=== PATIENT | female | born 1945 | race Caucasian/White ===

== ENCOUNTER 2016-10-25 11:32 | Emergency (ER) | payer MEDICARE, OTHER ==
[2016-10-25] MEDS ORDERED: PROMETHAZINE HCL 25 MG in DEXTROSE 5 % IN WATER 50 ML IV ONE ×2 (12:04)
[2016-10-25] MEDS ORDERED: NORMAL SALINE 1,000 ML IV ONE (12:04)
[2016-10-25] MEDS ORDERED: DIATRIZOATE MEGLU/DIATRIZO SOD 30 ML BTL PO ONE (12:10)
--- OUTSIDE RECORDS SUMMARY | 2016-10-25 12:16 | XMS REPORT | Continuity of Care Document ---
:1945 Author Organization [facility] ([facility]) Address [place] [address] Phone [phone] Care Team Providers Name Role Phone Pradeep Avendaño Primary Care Provider [phone] Source Comments This disclosure is being made pursuant to the Care Everywhere program, applicable federal and state laws, and may not contain all informaitonavailable regarding this patient.[facility] ([facility]) Active Allergies and Adverse Reactions No Active Allergies Current Medications Not on file Active Problems Problem Noted Date Acute vascular insufficiency of intestine 07/28/2006 Abdominal pain, unspecified site 06/02/2006 Abdominal pain, epigastric 06/02/2006 Social History Tobacco Use Types Packs/Day Years Used Date Never Assessed Last Filed Vital Signs Vital Sign Reading Time Taken Blood Pressure 128/81 04/24/2008 11:25 AM CDT Pulse 62 04/24/2008 11:25 AM CDT Temperature 36.2 C (97.16 F) 04/24/2008 11:25 AM CDT Respiratory Rate 16 04/24/2008 11:25 AM CDT Height 1.626 m (5' 4.01") 02/22/2008 10:47 AM CDT Weight 75.896 kg (167 lb 5.1 oz) 02/22/2008 10:47 AM CDT Body Mass Index 28.71 02/22/2008 10:47 AM CDT Oxygen Saturation - - Plan of Care Date Type Specialty Providers Description 12/08/2016 Wait List Neurology 12/08/2016 Appointment Neurology Angi Marcelino MD Chief Comp: Patient [address] [place] [address] Visit [phone] (Fax) 12/24/2016 Wait List Med GI/Hepatology 12/24/2016 Appointment Med GI/Hepatology Paul Polk MD Chief Comp: Patient [address] [place] [address] Visit [phone] (Fax) Health Maintenance Due Date Last Done Comments HCV Screening 1945 Hepatitis B Vaccine (1 of 3 - Primary Series) 1945 Tdap Vaccine 11/16/1955 Lipid Disorder Screening 1962 Td Vaccine 1962 Mammogram 1984 Zoster Vaccine 2004 Osteoporosis Screening (DXA Bone Density) 2009 Pneumococcal Vaccine (1 of 2 - PCV13) 2009 Influenza Vaccine: Seasonal (#1) 03/16/2016 Colonoscopy 04/24/2018 04/24/2008 Results from Last 3 Months Not on file
--- NOTE | 2016-10-25 12:17 | ERNOTE ---
Medical Problem HPI - Narrative Date of Service: 10/25/16 - General Chief Complaint: General Assessment Time Seen by Provider: 10/25/16 11:53 Source: patient, family Exam Limitations: no limitations - Immun/Allergies/Home Medications Immunizations: IMMUNIZATION HX Immunizations Up to Date Yes History of Influenza Vaccine Yes Hx Pneumococcal Vaccination Yes Allergies/Adverse Reactions: Allergies No Known Allergies Allergy (Verified 10/25/16 11:50) Home Medications: HOME MEDICATIONS Acetaminophen [Tylenol] 325 - 650 mg PO Q4H PRN 07/20/12 [Last Taken Unknown] Cholecalciferol (Vitamin D3) [Vitamin D] 2,000 unit PO DAILY 07/20/12 [Last Taken Unknown] Calcium Carbonate [[id number]] 500 mg PO DAILY 01/15/15 [Last Taken Unknown] Levothyroxine Sodium [Synthroid] 88 mcg PO DAILY 01/15/15 [Last Taken Unknown] Multivitamins [Multivitamin Rigoberto] 1 cap PO DAILY 01/15/15 [Last Taken Unknown] Aspirin 81 mg PO DAILY 10/25/16 [Last Taken Unknown] Promethazine HCl [Phenergan (Promethazine)] 25 mg PO QID #12 tab 10/25/16 [Last Taken Unknown] - History of Present History Narrative: 6 days ago, began to have some generalized abdominal discomfort. 2 days ago, was seen in the walkin clinic, and told maybe she had diverticulitis, and was started on oral antibiotics. This morning, she developed brown diarrhea, no blood, increased general pressure like abdominal pain, light headedness and mild nausea. No fever. Not around anyone else sick in the last week. Has fructose intolerance, follows diet closely. Timing: getting worse Severity: mild, moderate Modifying Factors - (Improves): Present: other - nothing Modifying Factors - (Worsens): Present: eating, movement Review of Systems - Review of Systems Constitutional: Present: malaise, decreased activity level EYE: Present: no symptoms reported ENT: Present: no symptoms reported Respiratory: Present: no symptoms reported Cardiology: Present: no symptoms reported Gastrointestinal/Abdominal: Present: See HPI Genitourinary: Present: no symptoms reported Musculoskeletal: Present: no symptoms reported Skin: Present: no symptoms reported Neurological: Present: no symptoms reported Endocrine: Present: no symptoms reported Hematologic/Lymphatic: Present: no symptoms reported Psych: Present: no symptoms reported All Other Systems: All systems neg except as marked - Patient's Past Medical History Patient History - Medical: Arthritis, Cataracts, Hypothyroidism, Other - fructose intolerance Patient History - Cardiac/Respiratory: No pertinent hx Patient History - Cancer: No Hx of Cancer Patient History - Surgical Procedures: Appendectomy, Cholecystectomy, Colonoscopy, EGD Patient History - Other: None - Social History Living Situations: home Abuse History: No History of abuse Psych History: No pertinent hx Smoking Status: Never smoker Have you smoked in the past 12 months: No Alcohol Use: none Drug Use: none - Immunizations Immunizations Up to Date: Yes Hx Pneumococcal Vaccination: Yes History of Influenza Vaccine: Yes Physical Exam - Physical Exam General Appearance: Present: wd/wn, alert, no apparent distress Eye Exam: Normal inspection: bilateral, PERRL: bilateral, EOMI: bilateral Ears, Nose, Throat: Present: normal ENT inspection, normal pharynx, other - red nasal mucosa Neck: Present: normal inspection, nontender Respiratory: Present: no respiratory distress, normal breath sounds Cardiovascular/Chest: Present: regular rate, rhythm, no murmur Gastrointestinal/Abdominal: Present: normal bowel sounds, nondistended, soft, no organomegaly, tenderness - diffuse mild Back Exam: Present: normal inspection, no CVA tenderness, no vertebral tenderness Extremity Exam: Present: normal inspection, normal range of motion, no edema Neurological Exam: Present: alert, oriented, normal mood/affect Skin Exam: Present: normal color, warm/dry ED Progress - Results and Orders Patient's Lab Results:: I have reviewed the patient's lab results. - Vital Signs Patient's Vital Signs:: I have reviewed the patient's vital signs. Vital Signs: Vital Signs 10/25/16 11:46 Temperature 36.6 C Pulse Rate 72 Respiratory 14 Rate Blood Pressure 146/89 O2 Sat by Pulse 100 Oximetry - CT/Ultrasound CT/Ultrasound Narrative: I have reviewed the CT scan report. There is no definitive evidence for colitis or for diverticulitis. - Progress/Reassessment Chief Complaint: General Assessment Departure - Departure Clinical Impression: Diarrhea Qualifiers: Diarrhea type: unspecified type Qualified Code(s): R19.7 - Diarrhea, unspecified Disposition: Home self-care Condition: Good Instructions: Diarrhea, Adult, Hktk-bv-Ltex, Clear Liquid Diet, Oqtj-uy-Ougq Additional Instructions: Followup with your doctor in 2-3 days. Stop the antibiotics. Clear liquids only for 72 hours. Rest Referrals: Pradeep Avendaño MD [Primary Care Provider] - Prescriptions: Promethazine HCl [Phenergan (Promethazine)] 25 mg PO QID #12 tab
[2016-10-25 12:37] LABS: Hematocrit 43.6 % (37.0-47.0); Hemoglobin 14.4 gm/dL (12.5-16.0); Mean Cell Volume 92.8 fl (78-100); Mean Corpuscular Hemoglobin 30.6 pg (27-31); Neutrophil # 3.4 K/mm3 (1.3-6.0); Neutrophil % 64.5 % (42-75.0); Platelet Count 146 K/mm3 (150-450); Red Cell Distribution Width 13.7 % (11.5-14.0); White Blood Count 5.2 K/mm3 (4.0-10.5)
[2016-10-25 12:41] LABS: Urine Color Yellow
[2016-10-25 12:42] LABS: Urine Appearance Clear; Urine Bilirubin Negative (NEGATIVE); Urine Ketone Negative (NEGATIVE); Urine Nitrite Negative (NEGATIVE); Urine Protein Negative (NEGATIVE); Urine Specific Gravity 1.005 SP.GR. (1.005-1.010); Urine Urobilinogen Normal (NORMAL)
[2016-10-25 12:43] LABS: Urine Bacteria None Seen; Urine Blood 10 /ul (NEGATIVE); Urine RBC 0-5 /hpf (0-5); Urine WBC None Seen /hpf (0-5)
[2016-10-25] MEDS ORDERED: DIATRIZOATE MEGLU/DIATRIZO SOD 30 ML BTL ONE (12:46)
[2016-10-25 12:53] LABS: Anion Gap 13.3 mmol/L (6.8-13.8); BUN/Creatinine Ratio 10.3 (9.0-21.6); Bilirubin, Total 0.8 mg/dL (0.0-1.1); Carbon Dioxide 29.2 mmol/L (24-32.6); Potassium 3.5 mmol/L (3.4-4.6); Total Protein 7.7 gm/dL (6.2-8.2)
[2016-10-25 12:59] LABS: Ca. Corrected For Albumin 8.9 mg/dL (8.4-10.2); Calcium * 9.2 mg/dL (7.9-10.9)
[2016-10-25 16:22] VITALS: BP 155/95
== END 2016-10-25 16:40 | disposition home or self-care (01) ==
LOC: ER 11:32
DX: R19.7 Diarrhea, unspecified (principal); E03.9 Hypothyroidism, unspecified; M19.90 Unspecified osteoarthritis, unspecified site

== ENCOUNTER 2016-10-27 10:06 | Emergency (ER) | payer MEDICARE, OTHER ==
--- OUTSIDE RECORDS SUMMARY | 2016-10-27 10:24 | XMS REPORT | Continuity of Care Document ---
:1945 Author Organization [facility] ([facility]) [place] [place] [address] Phone [phone] Care Team Providers Name Role Phone Pradeep Avendaño Primary Care Provider [phone] Source Comments This disclosure is being made pursuant to the Care Everywhere program, applicable federal and state laws, and may not contain all informaitonavailable regarding this patient.[facility] ([facility]) Active Allergies and Adverse Reactions No Active [...] Patient [address] [place] [address] Visit [phone] (Fax) 12/24/2016 Wait List Med GI/Hepatology 12/24/2016 Appointment Med GI/Hepatology Paul Polk MD Chief Comp: Patient [address] [place] [address] Visit [phone] (Fax) Health Maintenance Due Date Last Done [...]
[2016-10-27 10:36] LABS: Hematocrit 43.7 % (37.0-47.0); Hemoglobin 14.6 gm/dL (12.5-16.0); Mean Cell Volume 91.6 fl (78-100); Mean Corpuscular Hemoglobin 30.6 pg (27-31); Mean Corpuscular Hgb Conc 33.4 g/dl (32-36); Mean Platelet Volume 10.8 fl (6.0-9.5); Neutrophil # 3.5 K/mm3 (1.3-6.0); Neutrophil % 66.8 % (42-75.0); Platelet Count 156 K/mm3 (150-450); Red Blood Count 4.77 M/mm3 (4.2-5.4); Red Cell Distribution Width 13.5 % (11.5-14.0); White Blood Count 5.3 K/mm3 (4.0-10.5)
--- NOTE | 2016-10-27 10:36 | ERNOTE ---
Medical Problem HPI - Narrative Date of Service: 10/27/16 - General Chief Complaint: Nose Bleed Time Seen by Provider: 10/27/16 10:11 Source: patient Exam Limitations: no limitations - Immun/Allergies/Home Medications Immunizations: IMMUNIZATION HX Immunizations Up to Date Yes History of Influenza Vaccine Yes Hx Pneumococcal Vaccination Yes Allergies/Adverse Reactions: Allergies No Known Allergies Allergy (Verified 10/27/16 10:19) Home Medications: HOME MEDICATIONS Acetaminophen [Tylenol] 325 - 650 mg PO Q4H PRN 07/20/12 [Last Taken Unknown] Cholecalciferol (Vitamin D3) [Vitamin D] 2,000 unit PO DAILY 07/20/12 [Last Taken Unknown] Calcium Carbonate [Fvpz-[id number]-953] 500 mg PO DAILY 01/15/15 [Last Taken Unknown] Levothyroxine Sodium [Synthroid] 88 mcg PO DAILY 01/15/15 [Last Taken Unknown] Multivitamins [Multivitamin Rigoberto] 1 cap PO DAILY 01/15/15 [Last Taken Unknown] Aspirin 81 mg PO DAILY 10/25/16 [Last Taken Unknown] Promethazine HCl [Phenergan (Promethazine)] 25 mg PO QID #12 tab 10/25/16 [Last Taken Unknown] Vancomycin HCl 125 mg PO QID #40 capsule 10/27/16 [Last Taken Unknown] metroNIDAZOLE [Flagyl] 500 mg PO QID #40 tab 10/27/16 [Last Taken Unknown] - History of Present History Narrative: Pt presents to ED with c/o nose bleed which began 30 minutes prior to arrival. Pt states she was at home and blew her nose this morning causing the nose bleed to start. Pt states she has not been able to stop the bleeding. Pt attempted putting pressure on the nose. Pt states she was here 3 days ago for abdominal pain, diarrhea, and light-headedness. Pt states this has not resided yet and had 7 bowel movements this am. Pt denies any odor. Pt states the stool has black residue and yellow bile color. Pt denies anything making it better or anything making it worse. Date (Duration): 10/27/16 Time (Timing): 10:00 Timing: constant Severity: mild Review of Systems - Review of Systems Constitutional: Present: recent illness. Absent: fever, diaphoresis, weakness, fatigue, fussy, decreased activity level EYE: Present: no symptoms reported. Absent: eye pain, vision changes ENT: Present: nose congestion, other - nose bleed that also goes down back of throat. Absent: ear pain Respiratory: Present: no symptoms reported. Absent: shortness of breath, cough , wheezing Cardiology: Present: no symptoms reported. Absent: chest pain, palpitations Gastrointestinal/Abdominal: Present: diarrhea - had 7 bowel movements this am . Absent: nausea, vomiting, constipation, abdominal pain Genitourinary: Present: no symptoms reported. Absent: frequency, pain, dysuria Musculoskeletal: Present: no symptoms reported. Absent: back pain, muscle stiffness Skin: Present: no symptoms reported. Absent: rash, dryness, change in color Neurological: Present: no symptoms reported. Absent: anxiety, depressed, weakness Endocrine: Present: no symptoms reported. Absent: excessive sweating, intolerance to heat, intolerance to cold Hematologic/Lymphatic: Present: no symptoms reported. Absent: easy bruising, easy bleeding Psych: Present: no symptoms reported. Absent: anxiety, depressed All Other Systems: All systems neg except as marked - Patient's Past Medical History Patient History - Medical: Arthritis, Cataracts, Hypothyroidism, Other Patient History - Cardiac/Respiratory: No pertinent hx Patient History - Cancer: No Hx of Cancer Patient History - Surgical Procedures: Appendectomy, Cholecystectomy, Colonoscopy, EGD Patient History - Other: None - Social History Living Situations: home Abuse History: No History of abuse Psych History: No pertinent hx Smoking Status: Never smoker Have you smoked in the past 12 months: No Alcohol Use: none Drug Use: none - Immunizations Immunizations Up to Date: Yes Hx Pneumococcal Vaccination: Yes History of Influenza Vaccine: Yes Physical Exam - Physical Exam General Appearance: Present: wd/wn, alert, no apparent distress, active. Absent : anxious, lethargic Eye Exam: Normal inspection: bilateral, PERRL: bilateral, EOMI: bilateral Ears, Nose, Throat: Present: nasal congestion, normal pharynx, other - nose bleeding which drains down the back of the throat. Absent: hearing decreased Neck: Present: normal inspection, nontender, supple, full range of motion Respiratory: Present: no respiratory distress, normal breath sounds, no accessory muscle use, chest nontender, lungs clear. Absent: decreased breath sounds, crackles, rales, wheezing Cardiovascular/Chest: Present: regular rate, rhythm, no murmur, normal peripheral pulses. Absent: irregularly irregular Gastrointestinal/Abdominal: Present: nondistended, soft, tenderness - left upper quadrant, abnormal bowel sounds - bowels hyperactive in left upper and lower quadrant. Absent: normal bowel sounds, nontender, no organomegaly Back Exam: Present: normal inspection, normal range of motion Extremity Exam: Present: normal inspection, normal except -, non-tender, normal range of motion, no edema Neurological Exam: Present: alert, oriented, normal mood/affect, no motor/ sensory deficits. Absent: facial droop, motor weakness Skin Exam: Present: normal color, warm/dry. Absent: diaphoresis, skin rash Lymphatic Exam: Present: no adenopathy ED Progress - Date and Time Seen: Date and Time: 10/27/16 11:51 pt. unable to give stool sample so C diff is less likely but will treat for colitis and have her follow up outpatient for stool culture. Pt. without bloody stool here. 10/27/16 11:53 Pt. epistaxis stopped at this time. - Results and Orders Patient's Lab Results:: I have reviewed the patient's lab results. - Vital Signs Patient's Vital Signs:: I have reviewed the patient's vital signs. Vital Signs: Vital Signs 10/27/16 10/27/16 10:14 10:20 Temperature 36.7 C Pulse Rate 97 95 Respiratory 16 14 Rate Blood Pressure 149/109 O2 Sat by Pulse 98 98 Oximetry - X-Ray X-Ray #1 X-Ray: abdomen Interpretation: Reviewed by me X-ray Comments: colitis throughout sigmoid and transverse and ascending colitis. non obstruction - Progress/Reassessment Chief Complaint: Nose Bleed Departure - Departure Clinical Impression: Colitis, Epistaxis Disposition: Home self-care Condition: Good Instructions: Clostridium Difficile Infection, Symk-zo-Slet, Colitis, Nosebleed , Ujjb-kj-Jcgy Additional Instructions: Please follow up with Dr Avendaño in 2-3 days. Please hold pressure on your nose and return to ER if bleeding becomes severe again. Please return here with stool sample and continue liquid diet but please do not use any artificial sweetener. Please start probiotic daily. Referrals: Pradeep Avendaño MD [Primary Care Provider] - Prescriptions: Vancomycin HCl 125 mg PO QID #40 capsule metroNIDAZOLE [Flagyl] 500 mg PO QID #40 tab
[2016-10-27] MEDS ORDERED: OXYMETAZOLINE HCL 150 SPRAY BTL NS ONE (10:43)
[2016-10-27 10:46] LABS: Prothrombin Time (Patient) 11.6 Seconds (9.4-11.4)
[2016-10-27 10:47] LABS: INR 1.12 INR (0.90-1.10); Partial Thrombolplastin Time 26.5 Seconds (24-32)
[2016-10-27 10:49] LABS: Albumin * 3.9 gm/dl (3.4-5.0); BUN/Creatinine Ratio 6.3 (9.0-21.6); Bilirubin, Total 0.9 mg/dL (0.0-1.1); Ca. Corrected For Albumin 8.8 mg/dL (8.4-10.2); Carbon Dioxide 24.5 mmol/L (24-32.6); Potassium 3.5 mmol/L (3.4-4.6); Total Protein 7.6 gm/dL (6.2-8.2)
[2016-10-27] MEDS ORDERED: OXYMETAZOLINE HCL 150 SPRAY BTL ONE (10:51)
[2016-10-27 11:37] VITALS: BP 123/99
[2016-11-02 23:18] LABS: C.dificile Culture NOT ISOLATED
== END 2016-10-27 13:35 | disposition home or self-care (01) ==
LOC: ER 10:06
DX: K52.9 Noninfective gastroenteritis and colitis, unspecified (principal); R04.0 Epistaxis; E03.9 Hypothyroidism, unspecified; M19.90 Unspecified osteoarthritis, unspecified site

== ENCOUNTER 2016-11-17 15:12 | Emergency (ER) | payer MEDICARE, OTHER ==
[2016-11-17] MEDS ORDERED: ONDANSETRON HCL/PF 2 MG/ML VIAL IV ONE (15:50)
[2016-11-17] MEDS ORDERED: NORMAL SALINE 1,000 ML IV ONE (15:50)
[2016-11-17] MEDS ORDERED: ONDANSETRON HCL/PF 2 MG/ML VIAL ONE (15:58)
[2016-11-17 16:16] LABS: Hematocrit 43.9 % (37.0-47.0); Hemoglobin 14.4 gm/dL (12.5-16.0); Mean Cell Volume 92.6 fl (78-100); Mean Corpuscular Hemoglobin 30.4 pg (27-31); Mean Corpuscular Hgb Conc 32.8 g/dl (32-36); Mean Platelet Volume 11.2 fl (6.0-9.5); Neutrophil # 8.7 K/mm3 (1.3-6.0); Neutrophil % 88.6 % (42-75.0); Platelet Count 157 K/mm3 (150-450); Red Blood Count 4.74 M/mm3 (4.2-5.4); White Blood Count 9.8 K/mm3 (4.0-10.5)
[2016-11-17 16:29] LABS: Albumin * 3.6 gm/dl (3.4-5.0); Anion Gap 12.2 mmol/L (6.8-13.8); BUN/Creatinine Ratio 13.9 (9.0-21.6); Bilirubin, Total 0.7 mg/dL (0.0-1.1); Ca. Corrected For Albumin 9.3 mg/dL (8.4-10.2); Calcium * 9.3 mg/dL (7.9-10.9); Carbon Dioxide 27.6 mmol/L (24-32.6); Potassium 3.8 mmol/L (3.4-4.6); Total Protein 7.6 gm/dL (6.2-8.2)
--- NOTE | 2016-11-17 16:44 | ERNOTE ---
Medical Problem HPI - Narrative Date of Service: 11/17/16 - General Chief Complaint: Nausea/Vomiting Source: patient Exam Limitations: no limitations - Immun/Allergies/Home Medications Immunizations: IMMUNIZATION HX Immunizations Up to Date Yes History of Influenza Vaccine Yes Hx Pneumococcal Vaccination Yes Allergies/Adverse Reactions: Allergies No Known Allergies Allergy (Verified 11/17/16 15:17) Home Medications: HOME MEDICATIONS Acetaminophen [Tylenol] 325 - 650 mg PO Q4H PRN 07/20/12 [Last Taken Unknown] Cholecalciferol (Vitamin D3) [Vitamin D] 2,000 unit PO DAILY 07/20/12 [Last Taken Unknown] Calcium Carbonate [Uqku-Iao-213] 500 mg PO DAILY 01/15/15 [Last Taken Unknown] Levothyroxine Sodium [Synthroid] 88 mcg PO DAILY 01/15/15 [Last Taken Unknown] Multivitamins [Multivitamin Rigoberto] 1 cap PO DAILY 01/15/15 [Last Taken Unknown] Aspirin 81 mg PO DAILY 10/25/16 [Last Taken Unknown] Promethazine HCl [Phenergan (Promethazine)] 25 mg PO QID #12 tab 10/25/16 [Last Taken Unknown] Ondansetron [Zofran Odt] 4 mg PO Q6H PRN #20 tab 11/17/16 [Last Taken Unknown] - History of Present History Narrative: 71-year-old female presenting to the emergency room for nausea and vomiting. States she has had this before in the past and is seeing a specialist in December for this situation. States she was able to go about her day normally until 11 AM when she had one episode of vomiting. She had a second episode of vomiting when she presented to the emergency room. Date (Duration): 11/17/16 Timing: intermittent Severity: mild Modifying Factors - (Worsens): Present: eating Review of Systems - Review of Systems Constitutional: Present: See HPI, fatigue EYE: Present: no symptoms reported ENT: Present: no symptoms reported Respiratory: Present: no symptoms reported Cardiology: Present: no symptoms reported Gastrointestinal/Abdominal: Present: See HPI, nausea, vomiting Genitourinary: Present: no symptoms reported Musculoskeletal: Present: no symptoms reported Skin: Present: no symptoms reported Neurological: Present: dizziness/light-headedness Endocrine: Present: no symptoms reported Hematologic/Lymphatic: Present: no symptoms reported Psych: Present: no symptoms reported - Narrative Narrative: patient states she has a history of this and vertigo. she is seeing a specialist for this in december. - Patient's Past Medical History Patient History - Medical: Arthritis, Cataracts, Hypothyroidism, Other Patient History - Cardiac/Respiratory: No pertinent hx Patient History - Cancer: No Hx of Cancer Patient History - Surgical Procedures: Appendectomy, Cholecystectomy, Other Patient History - Other: None LMP (females 10-50): Menopausal - Social History Living Situations: home Abuse History: No History of abuse Psych History: No pertinent hx Alcohol Use: none Drug Use: none - Immunizations Immunizations Up to Date: Yes Hx Pneumococcal Vaccination: Yes History of Influenza Vaccine: Yes Physical Exam - Physical Exam General Appearance: Present: wd/wn, alert, no apparent distress Eye Exam: Normal inspection: bilateral Ears, Nose, Throat: Present: normal ENT inspection Neck: Present: normal inspection Respiratory: Present: no respiratory distress Cardiovascular/Chest: Present: regular rate, rhythm Peripheral Pulses: N=norm/S=strong/W=weak/B=bound/A=absent: Radial (R): Normal, Radial (L): Normal, Dorsalis-pedis (R): Normal, Dorsalis-pedis (L): Normal Gastrointestinal/Abdominal: Present: normal bowel sounds, nontender, soft Extremity Exam: Present: normal inspection Neurological Exam: Present: alert, oriented, normal mood/affect. Absent: director of professional services II -XII nml as tested, facial droop, disoriented to person, disoriented to time, disoriented to place, disoriented to situation Skin Exam: Present: normal color Lymphatic Exam: Present: no adenopathy ED Progress - Results and Orders Patient's Lab Results:: I have reviewed the patient's lab results. Results and Orders: WNL cbc and chem. UA was positive for blood. She will be instructed to follow up with PCP r/t to UA result. - Vital Signs Vital Signs: Vital Signs 11/17/16 11/17/16 15:13 15:15 Temperature 36.6 C Pulse Rate 84 Respiratory 16 Rate Blood Pressure 117/78 O2 Sat by Pulse 98 Oximetry - Progress/Reassessment Chief Complaint: Nausea/Vomiting Progress:: Improved Departure - Departure Clinical Impression: Vertigo Disposition: Home Follow Up Needed Condition: Stable Instructions: Vertigo, Cgmg-tl-Lhac, Dizziness, Bdjr-zf-Fxcs Additional Instructions: Continuing her previous home medications. May take Zofran as directed for nausea. Follow-up with Dr. Avendaño in the next day or two. Your Urinalysis did have blood present. Please address this with Dr avendaño as well. Come back to the emergency room if nausea and vomiting is not able to be controlled, or your dizziness continues. Referrals: Pradeep Avendaño MD [Primary Care Provider] - Prescriptions: Ondansetron [Zofran Odt] 4 mg PO Q6H PRN #20 tab PRN Reason: Nausea
--- OUTSIDE RECORDS SUMMARY | 2016-11-17 17:33 | XMS REPORT | Continuity of Care Document ---
:1945 Author Organization [facility] ([facility]) [place] [address] Phone [phone] Care Team Providers Name Role Phone Pradeep Avendaño Primary Care Provider [phone] Source Comments This disclosure is being made pursuant to the Care Everywhere program, applicable federal and state laws, and may not contain all informaitonavailable regarding this patient.[facility] ([facility]) Active Allergies and Adverse Reactions No [...] 12/08/2016 Wait List Neurology 12/08/2016 Appointment Neurology Agni Marcelino MD Chief Comp: Patient [address] [place] [address] Visit [phone] (Fax) 12/24/2016 Wait List Med GI/Hepatology 12/24/2016 Appointment Med GI/Hepatology Paul Polk MD Chief Comp: Patient [address] [place] [address] Visit [phone] (Fax) Health Maintenance Due Date Last Done [...]
[2016-11-17 17:40] LABS: Urine Bilirubin Negative (NEGATIVE); Urine Ketone 50 mg/dL (NEGATIVE); Urine Nitrite Negative (NEGATIVE); Urine Protein Negative (NEGATIVE); Urine Specific Gravity 1.015 SP.GR. (1.005-1.010); Urine Urobilinogen Normal (NORMAL)
[2016-11-17 17:46] VITALS: BP 141/81
[2016-11-17 17:48] LABS: Urine Appearance Clear; Urine Blood 10 /ul (NEGATIVE); Urine Color Dark Yellow; Urine RBC 0-5 /hpf (0-5); Urine WBC 0-5 /hpf (0-5)
[2016-11-17 17:49] LABS: Urine Bacteria TRACE
== END 2016-11-17 17:55 | disposition home or self-care (01) ==
LOC: ER 15:12
DX: R42 Dizziness and giddiness (principal); E03.9 Hypothyroidism, unspecified

== ENCOUNTER 2016-12-25 15:46 | Emergency (ER) | payer MEDICARE, OTHER ==
[2016-12-25 16:04] VITALS: BP 105/66
--- OUTSIDE RECORDS SUMMARY | 2016-12-25 16:20 | XMS REPORT | Continuity of Care Document ---
:1945 Author Organization [facility] ([facility]) [place] [address] [place] [address] Phone [phone] Care Team Providers Name Role Phone [place] Primary Care Provider [phone] Source Comments This disclosure is being made pursuant to the Care Everywhere program, applicable federal and state laws, and may not contain all informaitonavailable regarding this patient.[facility] ([facility]) Active Allergies and Adverse Reactions No Known Allergies Current Medications Prescription Sig. Disp. Refills Start Date End Date Status levothyroxine 88 mcg 11/03/2016 Active tablet rifAXIMin (XIFAXAN) 550 Take 1 tablet 42 tablet 0 12/24/2016 01/07/2017 Active mg tablet (550 mg total) by mouth 3 times daily for 14 days. Active Problems Problem Noted Date Dizziness 12/08/2016 Acute vascular insufficiency of intestine 07/28/2006 Abdominal pain, unspecified site 06/02/2006 Abdominal pain, epigastric 06/02/2006 Most Recent Encounters Date Type Specialty Providers Description 12/24/2016 Office Visit Med GI/Hepatology Paul Polk, Dx: Chronic diarrhea (Primary Dx) 12/24/2016 Telephone Med GI/Hepatology Ravindra Jaimes Chief Comp: Need Prior Authorization 12/18/2016 Hospital Encounter Radiology Rossy Ponce MD Chief Comp: Patient Reported Reason For Visit 12/18/2016 Hospital Encounter Radiology Rossy Ponce MD Chief Comp: Patient Reported Reason For Visit 12/18/2016 Hospital Encounter Radiology Rossy Ponce MD Chief Comp: Patient Reported Reason For Visit 12/18/2016 Hospital Encounter Radiology Rossy Ponce MD Chief Comp: Patient Reported Reason For Visit 12/18/2016 Hospital Encounter Radiology Rossy Ponce MD Chief Comp: Patient Reported Reason For Visit 12/18/2016 Hospital Encounter Radiology Rossy Ponce MD Chief Comp: Patient Reported Reason For Visit 12/08/2016 Office Visit Neurology Angi Marcelino A, Dx: Dizziness (Primary Dx) Social History Tobacco Use Types Packs/Day Years Used Date Former Smoker Smokeless Tobacco: Never Used Last Filed Vital Signs Vital Sign Reading Time Taken Blood Pressure 135/84 12/24/2016 1:33 PM CDT Pulse 63 12/24/2016 1:33 PM CDT Temperature 36.5 C (97.7 F) 12/24/2016 1:33 PM CDT Respiratory Rate 16 04/24/2008 11:25 AM CDT Height 1.6 m (5' 2.99") 12/24/2016 1:33 PM CDT Weight 63.1 kg (139 lb 1.8 oz) 12/24/2016 1:33 PM CDT Body Mass Index 24.65 12/24/2016 1:33 PM CDT Oxygen Saturation 95% 12/08/2016 3:06 PM CDT Plan of Care Health Maintenance Due Date Last Done Comments HCV Screening 1945 Hepatitis B Vaccine (1 of 3 - Primary Series) 1945 Tdap Vaccine 11/16/1955 Lipid Disorder Screening 1962 Td Vaccine 1962 Mammogram 1984 Zoster Vaccine 2004 Osteoporosis Screening (DXA Bone Density) 2009 Pneumococcal Vaccine (1 of 2 - PCV13) 2009 Influenza Vaccine: Seasonal (Season Ended) 2017 Colonoscopy 04/24/2018 04/24/2008 Results from Last 3 Months C-REACTIVE PROTEIN (12/24/2016 2:56 PM) Component Value Range CRP (C-Reactive Protein) <0.5 <=0.5 mg/dL Specimen Blood CBC (COMPLETE BLOOD COUNT) (12/24/2016 2:56 PM) Component Value Range WBC Count 5.1 3.7-10.5 K/MM3 RBC Count 4.51 4.00-5.20 M/MM3 Hemoglobin 13.5 11.9-15.5 g/dL Hematocrit 41 35-47 % MCV (Mean Corpuscular Volume) 91 82-99 FL MCH (Mean Corpuscular Hemoglobin) 30 25-35 PG MCHC (Mean Corpuscular Hemoglobin Concentration) 33 32-36 % Platelet Count 159 150-400 K/MM3 MPV (Mean Platelet Volume) 11.4 9.4-12.3 FL RBC Dist Width-STD 47.1(H) 36.4-46.3 FL RBC Distrib Width 14.0 9.0-14.5 % Nucleated RBC 0 /100 WBC Specimen Whole Blood EXTERNAL MRI - STORE ONLY (12/18/2016 3:27 PM)Only the most recent of2 resultswithin the time period is included.EXTERNAL CT - STORE ONLY (12/18/2016 3:24 PM)
--- NOTE | 2016-12-25 16:25 | ERNOTE ---
Back Pain ER HPI Date of Service: 12/25/16 Time Seen by Provider: 12/25/16 16:06 Source: patient Exam Limitations: no limitations Immunizations: IMMUNIZATION HX Immunizations Up to Date Yes History of Influenza Vaccine Yes Hx Pneumococcal Vaccination Yes Allergies/Adverse Reactions: Allergies No Known Allergies Allergy (Verified 12/25/16 16:04) Home Medications: HOME MEDICATIONS Acetaminophen [Tylenol] 325 - 650 mg PO Q4H PRN 07/20/12 [Last Taken Unknown] Cholecalciferol (Vitamin D3) [Vitamin D] 2,000 unit PO DAILY 07/20/12 [Last Taken Unknown] Calcium Carbonate [[id number]] 500 mg PO DAILY 01/15/15 [Last Taken Unknown] Levothyroxine Sodium [Synthroid] 88 mcg PO DAILY 01/15/15 [Last Taken Unknown] Multivitamins [Multivitamin Rigoberto] 1 cap PO DAILY 01/15/15 [Last Taken Unknown] Aspirin 81 mg PO DAILY 10/25/16 [Last Taken Unknown] Narrative: Pt. comes in with c/o back pain that started 6 hours ago and is relieved at this time after taking Ibuprofen five hours ago and Tylenol 1 hour ago. Pt. denies any SOB, CP, NVD, fever, recent illness, but does state that flexion and twisting increased the pain, when she was experiencing pain. Pt. states that she has had muscle spasms in the past that are similar to this but did not last as long. Review of Systems - Review of Systems Constitutional: Present: no symptoms reported. Absent: recent illness, fever, chills, weakness, fatigue, malaise EYE: Present: no symptoms reported ENT: Present: no symptoms reported Respiratory: Present: no symptoms reported. Absent: shortness of breath, cough , wheezing Cardiology: Present: no symptoms reported. Absent: chest pain, palpitations, edema Gastrointestinal/Abdominal: Present: no symptoms reported. Absent: nausea, vomiting, diarrhea Genitourinary: Present: no symptoms reported. Absent: frequency, pain, dysuria , decreased urinary output Musculoskeletal: Present: back pain - upper back pain Skin: Present: no symptoms reported. Absent: rash, change in hair/nails Neurological: Present: no symptoms reported. Absent: headache, dizziness/light- headedness, numbness, tingling All Other Systems: All systems neg except as marked - Patient's Past Medical History Patient History - Medical: Arthritis, Cataracts, Hypothyroidism Patient History - Cardiac/Respiratory: No pertinent hx Patient History - Cancer: No Hx of Cancer Patient History - Surgical Procedures: Appendectomy, Cholecystectomy, Other Patient History - Other: None - Social History Living Situations: spouse Abuse History: No History of abuse Psych History: No pertinent hx Smoking Status: Former smoker Have you smoked in the past 12 months: No Alcohol Use: none Drug Use: none - Immunizations Immunizations Up to Date: Yes Hx Pneumococcal Vaccination: Yes History of Influenza Vaccine: Yes Physical Exam - Physical Exam General Appearance: Present: wd/wn, alert, no apparent distress Eye Exam: Normal inspection: bilateral, PERRL: bilateral, EOMI: bilateral Ears, Nose, Throat: Present: normal ENT inspection, normal pharynx Neck: Present: normal inspection, nontender. Absent: lymphadenopathy (R), lymphadenopathy (L) Respiratory: Present: no respiratory distress, normal breath sounds, no accessory muscle use, chest nontender, lungs clear Cardiovascular/Chest: Present: regular rate, rhythm, no murmur, normal peripheral pulses Gastrointestinal/Abdominal: Present: nontender Back Exam: Present: normal range of motion, no CVA tenderness, vertebral tenderness - T5-6. Absent: CVA tenderness (R), CVA tenderness (L) Extremity Exam: Present: normal inspection, non-tender, normal range of motion, no edema Neurological Exam: Present: alert, oriented, normal mood/affect, no motor/ sensory deficits, volunteer assistant II-XII nml as tested, normal cerebellar test Skin Exam: Present: normal color, warm/dry. Absent: pallor, skin rash ED Progress - Vital Signs Patient's Vital Signs:: I have reviewed the patient's vital signs. Vital Signs: Vital Signs 12/25/16 15:57 Temperature 36.7 C Pulse Rate 64 Respiratory 16 Rate Blood Pressure 105/66 O2 Sat by Pulse 100 Oximetry - X-Ray X-Ray #1 X-Ray: thoracic Interpretation: Interp. by me X-ray Comments: Multi-level degenerative changes no acute deformity - Progress/Reassessment Chief Complaint: Back Pain Departure Clinical Impression: Degenerative disk disease Qualifiers: Spinal region: thoracic Qualified Code(s): M51.34 - Other intervertebral disc degeneration, thoracic region - Departure Disposition: Home self-care Condition: Good Instructions: Degenerative Disk Disease Additional Instructions: Please follow up with Dr Avendaño in 2-3 days. May take 1000mg of Tylenol every 6 hours as needed for pain. Referrals: Pradeep Avendaño MD [Primary Care Provider] -
== END 2016-12-25 17:07 | disposition home or self-care (01) ==
LOC: ER 15:46
DX: M51.34 Other intervertebral disc degeneration, thoracic region (principal); E03.9 Hypothyroidism, unspecified

== ENCOUNTER 2017-02-08 10:21 | Day surgery (SDC) | payer MEDICARE, OTHER ==
[~2017-02-08 10:21] MED LIST: RINGERS SOLUTION,LACTATED 1,000 ML IV PRN
[2017-02-08] MEDS ORDERED: RINGERS SOLUTION,LACTATED 1,000 ML IV ONE (10:45)
[2017-02-08] MEDS ORDERED: RINGERS SOLUTION,LACTATED 1,000 ML IV PRN (11:52)
[2017-02-08 12:52] VITALS: BP 136/84
--- NOTE | 2017-02-08 13:53 | OR ---
Operative Report - Dictated Report Narrative: OPERATIVE REPORT DATE OF OPERATION: 02/08/2017 PREOPERATIVE DIAGNOSIS: Chronic diarrhea POSTOPERATIVE DIAGNOSIS: Mild diverticulosis, grossly normal colonoscopy ( random biopsies pending) OPERATION: Colonoscopy with random colon biopsies SURGEON: Cyndi Negrete MD ANESTHESIA: KARISSA Katz CRNA INDICATIONS FOR PROCEDURE: The patient is a 71-year-old female referred by Dr Erickson at the [facility] for colonoscopy to investigate chronic diarrhea. The patient has had previous colonoscopies most recently in 2011. FINDINGS: Capacious redundant colon, mild diverticulosis, grossly normal exam to the cecum (random biopsies pending) NARRATIVE OF PROCEDURE: The patient was identified in the holding area, and prior to the administration of anesthetic, a multidisciplinary timeout was observed. With the patient in the left lateral position and after the administration of intravenous sedation, the perineum was inspected. There was no evidence of pilonidal disease or skin breakdown. The external appearance of the anus was normal. Sphincter tone was good. The flexible fiberoptic colonoscope was inserted into the rectum which was insufflated with air. The rectal mucosa and submucosal vascular pattern appeared normal, the prep was seen to be complete. The scope was advanced through the sigmoid colon, up the descending colon, and around the splenic flexure where the triangular haustral architecture of the transverse colon was seen. The scope was advanced across the transverse colon, around the hepatic flexure to the cecum, where the confluence of tenia and the ileocecal valve were identified. The mucosa at this level appeared normal. The scope was then slowly withdrawn in a circular fashion so that all aspects of colonic mucosa were inspected. The colon was capacious in character and redundant in course. The haustral architecture appeared well preserved throughout with no evidence of external compression. The mucosa and submucosal vascular pattern appeared normal, specifically there was no gross evidence to suggest colitis or inflammatory bowel disease and no AV malformations were seen. Random biopsies were obtained throughout the colon and an additional rectal biopsy was obtained as well. The biopsy sites were seen to be hemostatic. There were scattered diverticular openings but no inflammation. No polyps were encountered. The scope was gradually withdrawn to the level of the rectum. As much insufflated air as possible was removed. The scope was withdrawn from the patient and the procedure terminated. The patient tolerated the anesthetic and procedure well without complication and was transferred back to the ambulatory surgery area awake and in stable condition. The patient remained stable throughout a period of postoperative observation. She denied abdominal discomfort, was able to tolerate by mouth intake, and was up without assistance. I shared the operative findings with the patient and she was given copies of the photographs which appear in the medical record. She was discharged home with instructions not to engage in hazardous activity today , but may resume normal activity tomorrow, and advance diet as tolerated. She is to continue those medications as listed in the history and physical exam. I made arrangements to contact her with the biopsy reports and will make additional recommendations for treatment and follow-up based upon those results. Reviewed and electronically signed
== END 2017-02-08 10:22 | disposition home or self-care (01) ==
LOC: AMB 10:21
PROVIDERS: ATTEND Surgery
PROC: 0DBE8ZX Excision of Large Intestine, Via Natural or Artificial Opening Endoscopic, Diagnostic (ICD-10-PCS; 2017-02-08)
PROC: 0DBP8ZX Excision of Rectum, Via Natural or Artificial Opening Endoscopic, Diagnostic (ICD-10-PCS; principal; 2017-02-08 11:30)
DX: K57.30 Diverticulosis of large intestine without perforation or abscess without bleeding (principal); E03.9 Hypothyroidism, unspecified; Z87.891 Personal history of nicotine dependence; Z68.24 Body mass index [BMI] 24.0-24.9, adult

== ENCOUNTER 2017-07-21 06:02 | Inpatient (IN) | payer MEDICARE, OTHER ==
[~2017-07-21 06:02] MED LIST changes: +MORPHINE SULFATE 15 MG TABLET.SA PO PRN; +RINGER'S SOLUTION,LACTATED 1,000 ML IV PRN; -RINGERS SOLUTION,LACTATED 1,000 ML IV PRN; +ROPIVACAINE HCL/PF 100 MG, KETOROLAC TROMETHAMINE 30 MG, EPINEPHrine 0.2 MG in NORMAL S... IJ PRN; +TRANEXAMIC ACID 1,000 MG in NORMAL SALINE 100 ML IV PRN; +ceFAZolin SODIUM 1 GM VIAL IV PRN
[2017-07-21] MEDS ORDERED: RINGER'S SOLUTION,LACTATED 1,000 ML IV ONE ×3 (07:45→08:55)
--- NOTE | 2017-07-21 10:10 | POSTOP NO ---
Date of Surgery: 07/21/17 Patient Tolerated the Procedure: Well Post Operative Diagnosis/Procedures: Agency Director: José Miguel Massey PA-C Post-operative Diagnosis: Right hip degenerative joint disease Finding: Above Procedure: Right total hip arthroplasty Estimated Blood Loss: 200 ml Specimens: Bone for disposal
--- NOTE | 2017-07-21 10:13 | OR ---
Operative Report - Dictated Report Narrative: Date: 07/21/2017 Preoperative diagnosis: Right hip degenerative joint disease. Postoperative diagnosis: Right hip degenerative joint disease. Procedure: Right Total hip arthroplasty. Surgeon: Baron Quintanilla M.D. It Infrastructure Engineer: José Miguel Massey PA-C Anesthesia: Spinal and local periarticular joint injection. Complications: None Specimens: Bone for disposal. Estimated blood loss: 200 milliliters. Retained implants: Depuy Love size 4 femoral stem standard offset. Size 48 millimeter ouside diameter 3-hole [place] Gription acetabular cup. 48 millimeter outside by 32 millimeter inside diameter highly cross-linked acetabular liner. 32 millimeter diameter +9 millimeter cobalt chromium femoral head. Cancellous 6.5mm screw 40 and 15 millimeter lengths Indications: Mrs. Winter is a 71-year-old female who has had long standing right hip pain and arthrosis. This patient was followed in my clinic for period of time with significant complaints of right hip pain consistent with arthritic changes. She failed conservative measures including but not limited to activity modification, passage of time, medications, and other conservative measures. Patient wished to proceed with surgical treatment. The risks, benefits, and alternatives were discussed in clinic. The risks of , blood clots, bleeding, infection, nerve/tendon blood vessel/ injury, malposition of components, dislocation and/or instability of joint, intraoperative fracture, postoperative limited range of motion, persistent pain, failure of components, and need for additional procedures. Patient wished to proceed. Consent was obtained after answering all questions. Procedure: After marking the correct extremity on the floor, the patient was taken to the operating room. A timeout was performed. IV antibiotics consisting of Ancef were administered prior to the procedure. A spinal anesthetic was induced by anesthesia. A Arnold catheter was inserted. The patient was then transitioned to a lateral position on a well-padded pegboard. An axillary roll was placed. The head was in neutral position. The non- operative down leg was well-padded with SCD and JUANA hose in place. The arms were supported and padded to protect from any undue pressure on the bony prominences and nerves. A well-padded anterior and posterior pelvic and chest posts were secured in order to maintain a stable position of the pelvis. This was placed so that the pelvis was perpendicular to the floor. The body was in line with the pelvis. Once it was felt that we had protected all the bony prominences and the patient was well secured with a safety belt as well, the leg was pre-scrubbed with alcohol, prepped and draped in a standard sterile fashion. A standard anterior lateral hip incision was marked out over the greater trochanter. Ioban drapes were then placed. The skin incision was then made. Sharp dissection with a scalpel utilizing cautery for hemostasis was carried out down to the gluteus and iliotibial band fascia. This was split in line with the skin incision. The greater trochanter bursa was excised. The anterior and posterior margins of the abductor tendon were identified. The anterior 1/2-1/3 of the tendon was tagged and reflected off the greater trochanter leaving a sleeve of tendon for repair at the completion of the case. This exposed the underlying hip joint capsule. A limb length stitch was placed in the skin and referencedd off a andrew on the greater trochanter for evaluation of intraoperative limb lengths. An inverted T-type capsulotomy was made extending this up to the brim of the acetabulum. Using Homans to assist with elevation of the soft tissues off the anterior, superior, and inferior aspects of the femoral neck, the hip was then placed in a figure 4 position and the femoral head was dislocated. With the leg in an externally rotated and adducted position, the cutting flag was utilized in order to andrew for a standard femoral neck cut approximately a fingerbreadth above the level of the lesser trochanter. This was done with reference to pre-operative films and overall alignment. This was done while protecting the surrounding soft tissues with Homans. The femoral head was then removed and sized for guidance on preparation of the acetabulum. It was noted that there was loss of articular cartilage on both the femoral head and weightbearing portions of the acetabulum. We then returned the leg to the table and turned our attention to the acetabulum. While protecting the surrounding soft tissues, the labrum and remaining tissue in the fovea were excised using a scalpel and cautery. A series of reamers up to size 48 millimeter were utilized to prepare the acetabulum. The final reamer had good purchase and exposed the bleeding subchondral bone. The acetabulum was then thoroughly irrigated ensuring that all bony and cartilaginous materials were removed, and the final acetabular shell was impacted into place. This was placed in approximately 45 degrees of abduction and 20 degrees of anteversion utilizing the outrigger and body axis for alignment. This had a good press fit. 2 6.5mm cancellous screws were placed in the superior posterior quadrant of the acetabulum. The shell was then thoroughly irrigated and the final polyethylene was impacted into place ensuring that it seated completely. This was then protected with a sponge while we returned our attention to the femur. With the leg in a figure 4 position, utilizing Homans for soft tissue protection , a box cutting osteotome, followed by Charnley awl, followed by serial reamers and broaches were utilized in order to prepare the femur. It was found that a size 4 broach gave good axial and rotational stability. The calcar reamer was utilized in order to clean up the cut edges. The proximal femur was visualized to ensure that there were no signs of fracture. A series of heads and necks were trialed. It was found that a standard neck and a + 9 femoral head gave good overall stability. There was minimal longitudinal instability. With the leg in the position of sleep, the femoral head was well covered. Hip range of motion was able to reach full extension and external rotation to greater than 75 degrees prior to impingement along the posterior acetabulum. The hip was able to be flexed to greater than 90 degrees with internal rotation greater than 60 degrees prior to anterior impingement. The limb lengths were near equal based on comparison to the contralateral side and the prior placed limb length stitch. At this point it was felt these were the appropriately sized femoral components as well as neck and femoral head. The trial implants were removed. The femur was thoroughly irrigated. The final implants were impacted into place, and the hip was reduced. After ensuring that there was no damage to the proximal femur , the standard periarticular joint injection of ropivacaine, Toradol, and epinephrine were injected into the joint capsule and surrounding soft tissues. Anesthesia then administered intravenous tranexamic acid. The capsule was repaired with a single interrupted #1 Vicryl. The abductor tendon was repaired to the greater trochanter utilizing #5 Ethibond through drill holes. This was oversewn with #1 Vicryl. The fascia was closed with interrupted #1 Vicryl. The wounds were thoroughly irrigated as we closed in layers. The deep and subcutaneous fat layers were closed with 0 and 3-0 Vicryl respectively. The subcutaneous tissue was closed with a running 3-0 Vicryl and the skin with running 3-0 Monocryl subcutaneous and Prineo Dermabond dressing. All sponge, needle, blade, and instrument counts were correct prior to closing the wounds. Sterile dressings consisting of 4 x 4's, and tape were applied. The patient was awoken and transferred to her hospital bed and then to the postanesthesia care unit in stable condition. Postoperative condition: The plan is to admit to the medical/surgical inpatient floor postoperatively. There will be a projected 2 to 4 day hospital stay. Postoperatively 24 hours of IV antibiotics, pain control, physical therapy, occupational therapy, and medical comanagement will be utilized. Patient will be weightbearing as tolerated with anterior hip precautions. Postoperative films will be obtained in the recovery room.
[2017-07-21] MEDS ORDERED: MAG HYDROX/ALUMINUM HYD/SIMETH 30 ML UDC PO PRN (10:19)
[2017-07-21] MEDS ORDERED: PROMETHAZINE HCL 5 MG in DEXTROSE 5 % IN WATER 50 ML IV PRN ×2 (10:19)
[2017-07-21] MEDS ORDERED: ONDANSETRON HCL/PF 2 MG/ML VIAL IV PRN (10:19)
[2017-07-21] MEDS ORDERED: diphenhydrAMINE HCL 50 MG/ML VIAL IV PRN (10:19)
[2017-07-21] MEDS ORDERED: MAGNESIUM HYDROXIDE 30 ML UDC PO PRN (10:19)
[2017-07-21] MEDS ORDERED: ZOLPIDEM TARTRATE 5 MG TABLET PO PRN (10:19)
[2017-07-21] MEDS ORDERED: ACETAMINOPHEN 500 MG TABLET PO PRN (10:19)
[2017-07-21] MEDS ORDERED: HYDROmorphone HCL 1 MG/ML DISP.SYRIN IV PRN (10:19)
[2017-07-21] MEDS ORDERED: Melatonin/Pyridoxine Hcl (B6) [Melatonin 5 Mg Tablet] PO PRN (10:21)
[2017-07-21] MEDS: DEXTROSE 5%-LACTATED RINGERS 1,000 ML IV PRN ×2 (11:26→19:38)
[2017-07-21] MEDS: KETOROLAC TROMETHAMINE 15 MG/ML VIAL IV SCH ×2 (11:29→17:13)
[2017-07-21] MEDS ORDERED: POLYVINYL ALCOHOL 150 DROP BTL LEFTEYE PRN (13:32)
[2017-07-21] MEDS: oxyCODONE HCL/ACETAMINOPHEN 1 TAB TABLET PO PRN (19:56)
[2017-07-21] MEDS: SENNOSIDES/DOCUSATE SODIUM 1 TAB TABLET PO SCH (21:01)
[2017-07-21] MEDS: MORPHINE SULFATE 15 MG TABLET.SA PO SCH (21:01)
[2017-07-22] MEDS: KETOROLAC TROMETHAMINE 15 MG/ML VIAL IV SCH ×5 (00:20→23:22)
[2017-07-22] MEDS: oxyCODONE HCL/ACETAMINOPHEN 1 TAB TABLET PO PRN (05:03)
[2017-07-22 06:07] LABS: Hematocrit 28.9 % (37.0-47.0); Hemoglobin 9.6 gm/dL (12.5-16.0); Mean Cell Volume 94.8 fl (78-100); Mean Corpuscular Hemoglobin 31.5 pg (27-31); Mean Corpuscular Hgb Conc 33.2 g/dl (32-36); Mean Platelet Volume 10.8 fl (6.0-9.5); Platelet Count 127 K/mm3 (150-450); Red Blood Count 3.05 M/mm3 (4.2-5.4); Red Cell Distribution Width 14.2 % (11.5-14.0); White Blood Count 6.3 K/mm3 (4.0-10.5)
[2017-07-22 06:23] LABS: BUN/Creatinine Ratio 12.5 (9.0-21.6); Calcium * 8.4 mg/dL (7.9-10.9); Carbon Dioxide 29.6 mmol/L (24-32.6); Estimated Creat Clear 58.4; Potassium 3.6 mmol/L (3.4-4.6)
[2017-07-22] MEDS: LEVOTHYROXINE SODIUM 88 MCG TABLET PO SCH (07:50)
--- NOTE | 2017-07-22 08:13 | PN ---
Subjective - Date and Time Seen Date: 07/22/17 Subjective Narrative: Subjective: Reports some mild nausea this morning. She denies nausea last night. She states that she has limited food so far due to her gluten sensitivity. Was able to taken a few steps in the room with therapy. Pain is well-controlled. Denies vomiting but does have some nausea. Denies calf pain. Slept well. Physical exam: Alert and oriented to person, place and time Right lower Extremity: Palpable dorsalis pedis pulse. Sensation grossly intact to light touch. Dressings clean and dry. Able to flex and extend ankle and toes. No excessive drainage. Calf and thigh are soft and nontender. Mild bruising over the medial aspect of her thigh Assessment: Postop day 1 status post right total hip arthroplasty. Plan: Due to the need for pain control, post-operative limited mobility, protection of the surgical site and joint, monitoring of the wound, and the management of chronic medical conditions, she requires continued inpatient care. Continue with physical and occupational therapy weightbearing as tolerated. Continue with anticoagulation. 24 hours postoperative prophylactic antibiotics. Pain control with goal to rely on oral medications. Continue bowel regimen. Will need 6 weeks with walker or assitive device to protect joint while ambulating during the recovery process. Discharge planning. Discontinue Arnold catheter. Dietitian will come discuss her dietary limitations. Anesthesia is to evaluate her MRI to determine any further care needed. Repeat hemogram and BMP in a.m. in order to monitor for postoperative anemia and electrolyte imbalance. Objective - Vitals Vitals: Last Vital Signs Temp 37 C 07/22/17 07:07 Pulse 76 07/22/17 07:07 Resp 18 07/22/17 07:07 BP 95/58 07/22/17 07:07 Pulse Ox 96 07/22/17 07:07 - Abnormal Lab Findings Abnormal Lab Findings: Abnormal Lab Results 07/22/17 Range/Units 06:01 RBC 3.05 L (4.2-5.4) M/mm3 Hgb 9.6 L (12.5-16.0) gm/dL Hct 28.9 L (37.0-47.0) % MCH 31.5 H (27-31) pg RDW 14.2 H (11.5-14.0) % Plt Count 127 L (150-450) K/mm3 MPV 10.8 H (6.0-9.5) fl Cauti Physician Documentation - Urinary Catheter Management Urethral (Arnold) Urethral Indwelling: Yes Reason for Continuing Indwelling Catheter: Surgical Procedure Date of Insertion: 07/21/17 Time of Insertion: 08:10 Assessment/Plan - Problems/Diagnosis (1) Status post total hip replacement, right Problem: Acute (2) Degenerative disk disease Problem: Chronic (3) Hypothyroid Problem: Chronic (4) Fructose malabsorption Problem: Chronic (5) Acute blood loss anemia Problem: Acute
[2017-07-22] MEDS: PYRIDOXINE HCL (VITAMIN B6) 25 MG TABLET PO SCH (09:48)
[2017-07-22] MEDS: SACCHAROMYCES BOULARDII 250 MG CAPSULE PO SCH (09:50)
[2017-07-22] MEDS: CYANOCOBALAMIN 1,000 MCG TABLET PO SCH (09:50)
[2017-07-22] MEDS: MORPHINE SULFATE 15 MG TABLET.SA PO SCH ×2 (09:50→20:38)
[2017-07-22] MEDS: MULTIVITAMINS 1 CAP CAPSULE PO SCH (09:50)
[2017-07-22] MEDS: ASCORBIC ACID 500 MG TABLET PO SCH (09:50)
[2017-07-22] MEDS: CHOLECALCIFEROL 5,000 UNIT TABLET PO SCH (09:51)
[2017-07-22] MEDS: ENOXAPARIN SODIUM 40 MG/0.4 ML SYRG SC SCH (09:51)
[2017-07-22] MEDS: CALCIUM CARBONATE/VITAMIN D3 1 TAB TABLET PO SCH (09:51)
[2017-07-22] MEDS: Potassium [Potassium] 99 MG PO SCH (10:02)
--- NOTE | 2017-07-22 18:38 | PN ---
Subjective - Date and Time Seen Date: 07/22/17 Time: 18:37 Subjective Narrative: doing well, ambulated in the room in the morning. Occasional nausea with to oxycodone/acetaminophen and decreased intake due to gluten sensitivity/ fructose intolerance. Objective - Review of Systems Respiratory: Denies: Cough, Shortness of Breath Cardiac: Denies: Chest Pain, Edema Abdominal: Reports: Nausea - Vitals Vitals: Vital Signs Temp 37.6 C H 07/22/17 18:29 Pulse 97 07/22/17 18:29 Resp 20 07/22/17 18:29 BP 103/54 07/22/17 18:29 Pulse Ox 95 07/22/17 18:29 - Abnormal Lab Findings Abnormal Lab Findings: Laboratory Tests 07/22/17 06:01 WBC 6.3 Hgb 9.6 L Hct 28.9 L Plt Count 127 L 07/22/17 06:01 Plasma Sodium 140 Potassium 3.6 Chloride 105 Carbon Dioxide 29.6 BUN 9 Creatinine 0.72 Est GFR (Non-Af Amer) 85 Random Glucose 107 Calcium 8.4 - Exam Constitutional: Present: Elderly - well nourished, looks her age, alert and oriented X3 Neck: Present: normal inspection, trachea midline Respiratory: Present: normal breath sounds, no accessory muscle use Cardiovascular/Chest: Present: regular rate, rhythm. Absent: tachycardia Abdomen: Present: Normal bowel sounds, soft, nontender Extremity: Present: normal inspection, no pedal edema. Absent: calf tenderness Skin Exam: Present: warm/dry, pallor Cauti Physician Documentation - Urinary Catheter Management Urethral (Arnold) Urethral Indwelling: Yes Date of Insertion: 07/21/17 Time of Insertion: 08:10 Date of Removal: 07/22/17 Time of Removal: 08:30 Assessment/Plan - Problems/Diagnosis (1) Status post total hip replacement, right Problem: Acute Narrative: POD#1 . on MS Contin 15 mg every 12 hours and oral percocet for pain. Lovenox 40 mg subcutaneous daily for DVT prophylaxis. (2) Acute blood loss anemia Problem: Acute Narrative: H/H of 9.6 and 28.9. Patient hemodynamically stable w/o chest pain. sob. (3) Fructose malabsorption Problem: Chronic (4) Hypothyroidism Problem: Chronic Qualifiers: Hypothyroidism type: unspecified Qualified Code(s): E03.9 - Hypothyroidism , unspecified Narrative: Levothyroxine by mouth 88 g daily.
[2017-07-22] MEDS: SENNOSIDES/DOCUSATE SODIUM 1 TAB TABLET PO SCH (20:39)
[2017-07-23] MEDS: KETOROLAC TROMETHAMINE 15 MG/ML VIAL IV SCH (05:44)
[2017-07-23 06:02] LABS: Hematocrit 27.9 % (37.0-47.0); Hemoglobin 9.1 gm/dL (12.5-16.0); Mean Cell Volume 94.9 fl (78-100); Mean Corpuscular Hgb Conc 32.6 g/dl (32-36); Mean Platelet Volume 10.7 fl (6.0-9.5); Platelet Count 128 K/mm3 (150-450); Red Blood Count 2.94 M/mm3 (4.2-5.4); White Blood Count 7.4 K/mm3 (4.0-10.5)
[2017-07-23 06:11] LABS: Anion Gap 8.6 mmol/L (6.8-13.8); BUN/Creatinine Ratio 14.9 (9.0-21.6); Calcium * 8.5 mg/dL (7.9-10.9); Carbon Dioxide 30.1 mmol/L (24-32.6); Estimated Creat Clear 56.8; Potassium 3.7 mmol/L (3.4-4.6)
[2017-07-23] MEDS: LEVOTHYROXINE SODIUM 88 MCG TABLET PO SCH (07:17)
[2017-07-23] MEDS: ENOXAPARIN SODIUM 40 MG/0.4 ML SYRG SC SCH (09:33)
[2017-07-23] MEDS: CALCIUM CARBONATE/VITAMIN D3 1 TAB TABLET PO SCH (09:34)
[2017-07-23] MEDS: SACCHAROMYCES BOULARDII 250 MG CAPSULE PO SCH (09:34)
[2017-07-23] MEDS: MULTIVITAMINS 1 CAP CAPSULE PO SCH (09:35)
[2017-07-23] MEDS: PYRIDOXINE HCL (VITAMIN B6) 25 MG TABLET PO SCH (09:35)
[2017-07-23] MEDS: ASCORBIC ACID 500 MG TABLET PO SCH (09:35)
[2017-07-23] MEDS: CYANOCOBALAMIN 1,000 MCG TABLET PO SCH (09:35)
[2017-07-23] MEDS: MORPHINE SULFATE 15 MG TABLET.SA PO SCH (09:37)
[2017-07-23] MEDS: CHOLECALCIFEROL 5,000 UNIT TABLET PO SCH (09:37)
[2017-07-23] MEDS: Potassium [Potassium] 99 MG PO SCH (09:37)
[2017-07-23 10:42] VITALS: BP 100/63
[2017-07-23] MEDS ORDERED: SENNOSIDES 8.6 MG TABLET PO ONE (11:30)
--- NOTE | 2017-07-23 12:39 | DS ---
(1) Status post total hip replacement, right Problem: Acute (2) Degenerative disk disease Problem: Chronic (3) Hypothyroid Problem: Chronic (4) Fructose malabsorption Problem: Chronic (5) Acute blood loss anemia Problem: Acute Description of Stay: Mrs. Winter was admitted to the floor after undergoing right total hip arthroplasty. Tolerated this well. Was admitted to the floor postoperatively for 24 hours of IV antibiotics, pain control, medical comanagement, and occupational and physical therapy. OT and PT were consulted to assist with activities of daily living and ambulation. Was made weightbearing as tolerated with anterior hip precautions. Pain was initially controlled with IV regimen. This was transitioned to oral once tolerating a by mouth intake. Was resumed on home diet and medications. Had a Arnold catheter inserted and the operating room which was discontinued on postoperative day 1. Lovenox SCD and JUANA hose were utilized for DVT prophylaxis. Vital signs remained stable to the hospital course. Serial labs were obtained which showed a final hemoglobin of 9.1 grams. BMP was reviewed and was stable. Physical examination throughout the hospital course showed an extremity that had sensation that was intact to light touch, palpable pulses, a benign wound, motor intact to the toes, ankle, and knee. Once an oral pain regimen was tolerated and physical therapy goals were met, it was felt that they were stable for discharge to home. Instructions: Continue with weightbearing as tolerated and anterior hip cautions with no active abduction. It is okay to shower and get the wound wet as long as there is no drainage from the wound. Do not bathe or soak the wound. If there is any drainage from the wound keep the wound clean and dry and cover with dry gauze and tape. Change every 2-3 days as needed if there is any drainage. Cover wound while showering if there is any drainage. Continue with physical therapy. Resume home diet. Report any fever over 101.5 Fahrenheit, uncontrolled pain, increased drainage, foul odor of drainage, new or increased calf pain or shortness of breath, or any other significant complaints. A 325mg dialy aspirin will be started after finishing anticoagulation if not allergic. Continue with JUANA hose on the operative extremity until instructed otherwise. No driving until instructed otherwise. Follow up in approximately 10-14 days. Procedures Performed: see notes below List Procedures: Right total hip arthroplasty Discharge Disposition: Home self care Disposition: Home self-care Condition: Good Discharge Activity: Weight bearing, Other - anterior hip precautions with no active abduction Discharge Diet: General/regular food Referrals: Pradeep Avendaño MD [Primary Care Provider] - Additional Patient Instructions (free text): Follow-up in the office with Dr. Quintanilla on 08-05-17 at 9:45am. F/U WITH DR Escalona THE SAME DAY AT [facility]. Prescriptions (Any new or edited meds): Enoxaparin Sodium [Lovenox] 40 mg SC Q24H #7 disp.syrin HYDROcodone/ACETAMINOPHEN [[place] 5-325] 1 each PO Q2H #60 tablet Complete Home Medications List: Complete Home Medication List: Levothyroxine Sodium [Synthroid] 88 mcg PO DAILY 01/15/15 Multivitamins [Multivitamin Rigoberto] 1 cap PO DAILY 01/15/15 L.acidoph,Paracasei, B.lactis [Probiotic] 1 each PO DAILY 01/28/17 Melatonin/Pyridoxine HCl (B6) [Melatonin 5 mg Tablet] 1 each PO HS PRN 01/28/17 Ascorbic Acid [Vitamin C] 1,000 mg PO DAILY 07/07/17 Calcium Citrate/Vitamin D3 [Calcium Citrate - Vit D Tablet] 1 each PO DAILY Cholecalciferol (Vitamin D3) [Vitamin D3] 5,000 unit PO DAILY 07/07/17 Cyanocobalamin (Vitamin B-12) [Vitamin B-12] 5,000 mcg SL DAILY 07/07/17 Potassium 99 mg PO DAILY 07/07/17 Pyridoxine HCl (Vitamin B6) [Vitamin B-6] 100 mg PO DAILY 07/07/17 Enoxaparin Sodium [Lovenox] 40 mg SC Q24H #7 disp.syrin 07/23/17 HYDROcodone/ACETAMINOPHEN [[place] 5-325] 1 each PO Q2H #60 tablet 07/23/17 Sennosides/Docusate Sodium [Senokot-S] 2 tab PO HS tablet 07/23/17 Amb Orders for Discharge: PT Evaluation and Treatment Facility: [facility], Location: Rehabilitation Services
== END 2017-07-23 14:32 | disposition home or self-care (01) | DRG 470 ==
LOC: MS 06:02
PROVIDERS: ADMIT Orthopaedic Surgery; ATTEND Orthopaedic Surgery
PROC: 0SR90JZ Replacement of Right Hip Joint with Synthetic Substitute, Open Approach (ICD-10-PCS; principal; 2017-07-21 08:00)
DX: M16.11 Unilateral primary osteoarthritis, right hip (principal); D62 Acute posthemorrhagic anemia; E03.9 Hypothyroidism, unspecified; E74.10 Disorder of fructose metabolism, unspecified; Z79.82 Long term (current) use of aspirin

== ENCOUNTER 2017-09-20 14:11 | Day surgery (SDC) | payer MEDICARE, OTHER ==
[2017-09-20 14:22] VITALS: BP 125/85
== END 2017-09-20 14:12 | disposition home or self-care (01) ==
LOC: AMB 14:11
PROVIDERS: ATTEND Ophthalmology
PROC: 085K3ZZ Destruction of Left Lens, Percutaneous Approach (ICD-10-PCS; principal; 2017-09-20)
DX: E03.9 Hypothyroidism, unspecified; H26.492 Other secondary cataract, left eye; Z68.24 Body mass index [BMI] 24.0-24.9, adult; Z87.891 Personal history of nicotine dependence

== ENCOUNTER 2019-05-04 08:03 | Observation (INO) ==
[2019-05-04] MEDS ORDERED: ORPHENADRINE CITRATE 30 MG/ML VIAL IV ONE (08:44)
[2019-05-04] MEDS ORDERED: ORPHENADRINE CITRATE 30 MG/ML VIAL IM ONE (08:50)
[2019-05-04 09:01] LABS: Hematocrit 46.8 % (37.0-47.0); Hemoglobin 15.1 gm/dL (12.5-16.0); Mean Cell Volume 95.9 fl (78-100); Mean Corpuscular Hemoglobin 30.9 pg (27-31); Mean Corpuscular Hgb Conc 32.3 g/dl (32-36); Mean Platelet Volume 10.2 fl (8-12.5); Neutrophil # 3.4 K/mm3 (1.3-6.0); Neutrophil % 67.4 % (42-75.0); Platelet Count 163 K/mm3 (150-450); Red Blood Count 4.88 M/mm3 (4.2-5.4); Red Cell Distribution Width 13.8 % (11.5-14.0); White Blood Count 5.1 K/mm3 (4.0-10.5)
[2019-05-04 09:22] LABS: ALT 24 U/L (19-67); AST 45 U/L (0-48); Albumin * 3.8 gm/dl (3.4-5.0); Alkaline Phosphatase * 82 U/L (50-170); Anion Gap 12.3 mmol/L (6.8-13.8); BUN/Creatinine Ratio 12.2 (9.0-21.6); Bilirubin, Total 0.8 mg/dL (0.0-1.1); Blood Urea Nitrogen 10 mg/dL (3-23); Calcium * 9.2 mg/dL (7.9-10.9); Carbon Dioxide 28.6 mmol/L (24-32.6); Chloride 102 mmol/L (97-106); Glucose * 89 mg/dL (70-110); Lipase 170 U/L (73-393); Potassium 3.9 mmol/L (3.4-4.6); Sodium 139 mmol/L (132-142); Total Protein 7.7 gm/dL (6.2-8.2); Troponin I Less than 0.017 ng/mL (0.00-0.10)
[2019-05-04 09:41] LABS: Urine Bilirubin Negative (NEGATIVE); Urine Ketone Negative (NEGATIVE); Urine Nitrite Negative (NEGATIVE); Urine Protein Negative (NEGATIVE); Urine Specific Gravity <=1.005 SP.GR. (1.005-1.010); Urine Urobilinogen Normal (NORMAL); Urine pH 6.5 pH (5.0-7.0)
[2019-05-04 09:42] LABS: Urine Appearance Clear (CLEAR); Urine Bacteria None Seen; Urine Blood 5 /ul (NEGATIVE); Urine Color Pale Yellow; Urine RBC None Seen /hpf (0-5); Urine WBC None Seen /hpf (0-5)
[2019-05-04] MEDS ORDERED: MORPHINE SULFATE 2 MG/ML DISP.SYRIN IV ONE ×2 (12:01→12:36)
--- NOTE | 2019-05-04 12:02 | ERNOTE ---
Back Pain ER HPI Date of Service: 05/04/19 Presenting Symptoms: other - Thoracic back pain Time Seen by Provider: 05/04/19 08:37 Source: patient Exam Limitations: no limitations Immunizations: IMMUNIZATION HX Immunizations Up to Date Yes History of Influenza Vaccine Yes Hx Pneumococcal Vaccination Yes Allergies/Adverse Reactions: Allergies tramadol Adverse Reaction (Verified 05/04/19 08:14) Nausea Home Medications: HOME MEDICATIONS Multivitamins [Multivitamin Rigoberto] 1 cap PO DAILY 01/15/15 [Last Taken Unknown] Cyanocobalamin (Vitamin B-12) [Vitamin B-12] 5,000 mcg SL DAILY 07/07/17 [Last Taken Unknown] Aspirin 81 mg PO DAILY 11/30/17 [Last Taken Unknown] melatonin 5 mg capsule 5 mg PO HS PRN 04/19/18 [Last Taken Unknown] cholecalciferol (vitamin D3) 5,000 unit capsule 5,000 unit PO DAILY 05/09/18 [Last Taken Unknown] calcium citrate-vitamin D3 200 mg calcium-250 unit tablet 1 tab PO DAILY 12/19/18 [Last Taken Unknown] levothyroxine 75 mcg tablet 75 mcg PO DAILY #90 tab 02/07/19 [Last Taken Unknown] [place]-3/Dha/Epa/Fish Oil [Fish Oil 1,000 mg Softgel] 1 ea PO DAILY 05/04/19 [Last Taken Unknown] Narrative: Patient presents to the ED for back pain, mid thoracic. She states this started abruptly 2 days ago. She has had some pains in her back but they always go away. Pain is worse with breathing. No fever, no cvough. Nausea with this. NO calf pain or leg swelling. Has not seen anyone else for this. Pain severe, constant. Timing: Reports: constant Quality/Severity: Reports: severe Location of pain: Reports: no radiation, other - thoracic back Activities at Onset: Reports: none Recent Injury?: Reports: no Possible Precipitating Factor: Reports: none Modifying Factors - (Improves): Reports: nothing Modifying Factors - (Worsens): Reports: cough/deep breaths Associated Symptoms: Denies: fever/chills, constipation/incontinence, nausea/vomiting, difficulty walking, lightheadedness, numbess/weakness in legs Prior Treament: Denies: recently seen, recently hospitalized Review of Systems - Review of Systems Constitutional: Absent: fever ENT: Present: no symptoms reported Respiratory: Absent: stridor Cardiology: Absent: chest pain Gastrointestinal/Abdominal: Absent: abdominal pain Genitourinary: Absent: dysuria Musculoskeletal: Present: See HPI All Other Systems: All systems neg except as marked Medical History (Updated 05/04/19 @ 13:16 by Lorenzo Olmedo MD) Lacunar stroke (Acute) Onset Date: 2005 Influenza (Acute) Onset Date: 06/23/06 Hypothyroid (Chronic) Onset Date: 12/05/93 Fructose malabsorption (Chronic) Onset Date: 02/2013 Hypothyroidism (Chronic) Back pain, acute (Acute) Vertigo (Acute) Pharyngitis, acute (Acute) Conjunctivitis (Acute) Colitis (Acute) Degenerative disk disease (Chronic) Bilateral thumb pain Onset Date: Unknown Osteoarthritis of CMC joint of thumb Onset Date: Unknown Surgical History: Surgical History (Updated 07/28/18 @ 16:38 by Baron Quintanilla MD) Status post tubal ligation (Acute) Onset Date: 1976 S/P thyroidectomy (Acute) Onset Date: 09/20/09 stereotactic core biopsy (Acute) Onset Date: 01/13/12 S/P lumpectomy, left breast (Acute) Onset Date: 2000 Status post right hip replacement (Chronic) Onset Date: 07/21/17 07/21/17 [place] EGD with biopsy (Acute) Onset Date: 04/2008 small hiatal hernia pangastritis, duodenitis, gastritis Abnormal colonoscopy (Acute) Onset Date: 02/08/17 mild diverticulitis and inflammation. 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 Family History: Family History (Updated 04/06/18 @ 17:12 by Landy Chong LPN) Brother Raynaud's disease Arthritis Multiple sclerosis Father Heart disease Mother Heart disease Son Alive and well Social History: (Last Reviewed 05/04/19 @ 13:22 by Lorenzo Olmedo MD) Social History: mcfp: No Marital status: lives independently: Yes household members: spouse 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 Highest education level completed: Master's degree Service: No Tobacco: Smoking Status: Never smoker Alcohol: alcohol intake: never Substance Use: substance use type: does not use Dietary Habits: caffeine: Yes Type: tea Exercise: frequency: daily Physical Exam - Physical Exam General Appearance: Present: alert, no apparent distress Head Exam: Present: normal inspection, no evidence of injury Eye Exam: Normal inspection: bilateral, PERRL: bilateral Ears, Nose, Throat: Present: normal ENT inspection Neck: Present: normal inspection Respiratory: Present: no respiratory distress, normal breath sounds, no accessory muscle use, lungs clear Cardiovascular/Chest: Present: regular rate, rhythm, normal peripheral pulses Gastrointestinal/Abdominal: Present: normal bowel sounds, nontender, nondistended, soft Back Exam: Present: other - no specific reproducible tenderness. Absent: CVA tenderness (R), CVA tenderness (L) Extremity Exam: Present: normal inspection, non-tender, normal range of motion Neurological Exam: Present: alert, no motor/sensory deficits Skin Exam: Present: normal color, warm/dry Progress - Results and Orders Patient's Lab Results:: I have reviewed the patient's lab results. - Vital Signs Patient's Vital Signs:: I have reviewed the patient's vital signs. Vital Signs: Vital Signs 05/04/19 08:04 05/04/19 10:23 Temperature 36.6 C Pulse Rate 65 78 Respiratory Rate 16 16 Blood Pressure 141/85 125/86 O2 Sat by Pulse Oximetry 97 96 - EKG EKG #1 EKG: NSR EKG read: Interp. by dc EKG Comments: NSR rate 66. IVCD. Non-specific ST/T wave changes, no STEMI noted. - X-Ray X-Ray #1 X-Ray: chest Interpretation: Interp. by me X-ray Comments: I reviewed official radiology report X-Ray #2 X-Ray: thoracic Interpretation: Interp. by dc X-ray Comments: I reviewed official radiology report - CT/Ultrasound CT/Ultrasound Narrative: I reviewed official radiology report for CT chest - Progress/Reassessment Chief Complaint: Back Pain Progress Note-Subjective: 05/04/19 13:25 Patient has PE. Given repeat doses of morphine for pain control. D/W Dr. Woods who saw the patient in the ED and will admit. Lovenox given. Morphine repeated dosing for severe pain. Patient understands diagnosis. Departure Clinical Impression: Pulmonary embolism, Thoracic back pain - Departure Disposition: Still a patient Condition: Stable
[2019-05-04] MEDS ORDERED: ENOXAPARIN SODIUM 30 MG/0.3 ML SYRG SC ONE (12:08)
[2019-05-04] MEDS ORDERED: ACETAMINOPHEN 325 MG TABLET PO PRN (13:26)
[2019-05-04] MEDS ORDERED: (Melatonin 5 MG) PO PRN (13:30)
[2019-05-04] MEDS ORDERED: ENOXAPARIN SODIUM 60 MG/0.6 ML SYRG SC SCH (13:30)
--- NOTE | 2019-05-04 13:41 | HP ---
Chief Complaint - Chief Complaint Date of Service: 05/04/19 Time of Service: 13:32 Chief Complaint: I had upper back pain since Wednesday History of Present Illness: 73-year-old female with past medical history of COPD, hypertension, hy pothyroidism, lacunar strokes, and fructose malabsorption was evaluated in ER due to worsening upper back pain of 3 days duration. Patient reports that Wednesday shortly after getting out of bed she started having pain in her upper back but as the day progressed the pain resolved however yesterday afternoon the pain returned and has been gradually getting worse. Her pain has not been responding to any at home painkillers so she came to the ER. Patient denied any shortness of breath or any other symptoms. She denies any problems with blood clots in the past or recent surgery or being bedridden or inactive. Patient has no known risk factors for VTE. Medical History (Updated 05/04/19 @ 13:41 by Lea Woods MD) Lacunar stroke (Acute) Onset Date: 2005 Influenza (Acute) Onset Date: 06/23/06 Hypothyroid (Chronic) Onset Date: 12/05/93 Fructose malabsorption (Chronic) Onset Date: 02/2013 Hypothyroidism (Chronic) Back pain, acute (Acute) Vertigo (Acute) Pharyngitis, acute (Acute) Conjunctivitis (Acute) Colitis (Acute) Degenerative disk disease (Chronic) Bilateral thumb pain Onset Date: Unknown Osteoarthritis of CMC joint of thumb Onset Date: Unknown Surgical History: Surgical History (Updated 05/04/19 @ 13:41 by Lea Woods MD) Status post tubal ligation (Acute) Onset Date: 1976 S/P thyroidectomy (Acute) Onset Date: 09/20/09 stereotactic core biopsy (Acute) Onset Date: 01/13/12 S/P lumpectomy, left breast (Acute) Onset Date: 2000 Status post right hip replacement (Chronic) Onset Date: 07/21/17 07/21/17 [place] EGD with biopsy (Acute) Onset Date: 04/2008 small hiatal hernia pangastritis, duodenitis, gastritis Abnormal colonoscopy (Acute) Onset Date: 02/08/17 mild diverticulitis and inflammation. 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 Family History: Family History (Updated 04/06/18 @ 17:12 by Landy Chong LPN) Brother Raynaud's disease Arthritis Multiple sclerosis Father Heart disease Mother Heart disease Son Alive and well Social History: (Last Reviewed 05/04/19 @ 13:22 by Lroenzo Olmedo MD) Social History: long term: No Marital status: lives independently: Yes household members: spouse 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 Highest education level completed: Master's degree Service: No Tobacco: Smoking Status: Never smoker Alcohol: alcohol intake: never Substance Use: substance use type: does not use Dietary Habits: caffeine: Yes Type: tea Exercise: frequency: daily Peds Patient Hx - Developmental: No Pertinent Hx Peds Patient Hx - Medical: No Pertinent Hx Peds Patient Hx - Cardiac/Respiratory: No Pertinent Hx Peds Patient Hx - Surgical: No Surgical History Patient History - Cancer: No Hx of Cancer Review Of Systems (GEN) - Review of Systems Generalized/Overall Review: Present: No Symptoms Reported EENTM: Present: No Symptoms Reported Respiratory: Present: No Symptoms Reported Cardiac: Present: Chest Pain Abdominal: Present: No Symptoms Reported Genitourinary: Present: No Symptoms Reported Musculoskeletal: Present: Back Pain Neurological: Present: No Symptoms Reported Skin: Present: No Symptoms Reported Endocrine: Present: No Symptoms Reported Immunizations: IMMUNIZATION HX Immunizations Up to Date Yes History of Influenza Vaccine Yes Hx Pneumococcal Vaccination Yes Allergies/Adverse Reactions: Allergies Allergy/AdvReac Type Severity Reaction Status Date / Time tramadol AdvReac Nausea Verified 05/04/19 08:14 Home Medications: HOME MEDICATIONS Multivitamins [Multivitamin Rigoberto] 1 cap PO DAILY 01/15/15 [Last Taken Unknown] Cyanocobalamin (Vitamin B-12) [Vitamin B-12] 5,000 mcg SL DAILY 07/07/17 [Last Taken Unknown] Aspirin 81 mg PO DAILY 11/30/17 [Last Taken Unknown] melatonin 5 mg capsule 5 mg PO HS PRN 09/04/18 [Last Taken Unknown] cholecalciferol (vitamin D3) 5,000 unit capsule 5,000 unit PO DAILY 05/09/18 [Last Taken Unknown] calcium citrate-vitamin D3 200 mg calcium-250 unit tablet 1 tab PO DAILY 12/19/18 [Last Taken Unknown] levothyroxine 75 mcg tablet 75 mcg PO DAILY #90 tab 02/07/19 [Last Taken Unknown] [place]-3/Dha/Epa/Fish Oil [Fish Oil 1,000 mg Softgel] 1 ea PO DAILY 05/04/19 [Last Taken Unknown] Exam - Exam Vital Signs: Vital Signs - Last Taken Temp 36.6 C 05/04/19 08:04 Pulse 836 H 05/04/19 12:51 Resp 16 05/04/19 12:51 BP 131/90 H 05/04/19 12:51 Pulse Ox 97 05/04/19 12:51 Constitutional: Present: Alert, Oriented x3, Cooperative, Well developed, Well nourished, No distress, Elderly ENT Exam: Present: normal ENT inspection, hearing grossly normal, pharynx normal, TMs normal Eye Exam: bilateral eye: normal inspection, PERRL, EOMI Neck: Present: non-tender, full range of motion, supple, normal inspection, trachea midline Back Exam: Present: normal inspection, no CVA tenderness, no vertebral tenderness Breasts: Present: Exam deferred Respiratory: Present: chest non-tender, lungs clear, normal breath sounds, no respiratory distress, no accessory muscle use Cardiovascular/Chest: Present: normal peripheral pulses, regular rate, rhythm, no chest tenderness, no edema, no gallop, no JVD, no murmur, no rub Peripheral Pulses: carotid (R): 3+, carotid (L): 3+, femoral (R): 3+, femoral (L): 3+ Abdomen: Present: Normal bowel sounds, nontender, nondistended, no rebound tenderness, no hepatospenomegaly, no masses /Rectal: Present: Exam deferred Extremity: Present: normal range of motion, non-tender, normal inspection, no pedal edema, no calf tenderness, normal capillary refill Skin Exam: Present: normal color, warm/dry, no cyanosis, cool/dry Lymphatic: Present: no adenopathy Neurologic: Present: 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 II-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 nml as tested, normal cerebellar test, no motor/sensory deficits, alert, normal mood/affect, oriented x 3 Appearance: Present: appropriate appearance, appropriate insight, neat, no memory impairment Eye contact: Present: cooperative, good eye contact, normal speech Thoughts: Present: normal thought pattern, no apparent hallucination Diagnostic Studies: Abnormal Lab Results 05/04/19 05/04/19 05/04/19 Range/Units 08:56 08:59 09:35 Basophils % 1.2 H (0.0-1.0) % Lymphocytes # 1.15 L (1.5-3.5) k/mm3 D-Dimer 2.31 H (0.19-0.49) ug/mL Urine Blood 5 H (NEGATIVE) /ul Laboratory Results WBC 5.1 K/mm3 (4.0-10.5) 05/04/19 08:59 RBC 4.88 M/mm3 (4.2-5.4) 05/04/19 08:59 Hgb 15.1 gm/dL (12.5-16.0) 05/04/19 08:59 Hct 46.8 % (37.0-47.0) 05/04/19 08:59 MCV 95.9 fl (78-100) 05/04/19 08:59 MCH 30.9 pg (27-31) 05/04/19 08:59 MCHC 32.3 g/dl (32-36) 05/04/19 08:59 RDW 13.8 % (11.5-14.0) 05/04/19 08:59 Plt Count 163 K/mm3 (150-450) 05/04/19 08:59 MPV 10.2 fl (8-12.5) 05/04/19 08:59 Immature Gran % (Auto) 0.20 % (0.001-0.429) 05/04/19 08:59 Immature Gran # (Auto) 0.01 K/mm3 (0.000-0.0310) 05/04/19 08:59 67.4 % (42-75.0) 05/04/19 08:59 22.5 % (20-51) 05/04/19 08:59 7.1 % (0.0-9) 05/04/19 08:59 1.6 % (0.0-3.0) 05/04/19 08:59 1.2 % (0.0-1.0) H 05/04/19 08:59 Nucleated RBC % 0.0 k/mm3 (0-1) 05/04/19 08:59 3.4 K/mm3 (1.3-6.0) 05/04/19 08:59 1.15 k/mm3 (1.5-3.5) L 05/04/19 08:59 0.4 k/mm3 (0.0-1.0) 05/04/19 08:59 0.1 k/mm3 (0.0-0.7) 05/04/19 08:59 Absolute Basophils 0.1 k/mm3 (0.0-0.1) 05/04/19 08:59 2.31 ug/mL (0.19-0.49) H 05/04/19 08:56 Sodium 139 mmol/L (132-142) 05/04/19 08:59 139 mmol/L (130-142) 05/04/19 08:59 Potassium 3.9 mmol/L (3.4-4.6) 05/04/19 08:59 Chloride 102 mmol/L (97-106) 05/04/19 08:59 Carbon Dioxide 28.6 mmol/L (24-32.6) 05/04/19 08:59 12.3 mmol/L (6.8-13.8) 05/04/19 08:59 BUN 10 mg/dL (3-23) 05/04/19 08:59 0.82 mg/dL (0.4-1.4) 05/04/19 08:59 Est GFR (Non-Af Amer) 72 mL/min (60-130) 05/04/19 08:59 12.2 (9.0-21.6) 05/04/19 08:59 89 mg/dL (70-110) 05/04/19 08:59 Calcium 9.2 mg/dL (7.9-10.9) 05/04/19 08:59 Calcium Adj for Albumin 9.0 mg/dL (8.4-10.2) 05/04/19 08:59 0.8 mg/dL (0.0-1.1) 05/04/19 08:59 AST 45 U/L (0-48) 05/04/19 08:59 ALT 24 U/L (19-67) 05/04/19 08:59 82 U/L (50-170) 05/04/19 08:59 Less than 0.017 ng/mL (0.00-0.10) 05/04/19 08:59 C-Reactive Prot, Quant Less than 0.2 mg/dL (0.0-0.9) 05/04/19 08:59 7.7 gm/dL (6.2-8.2) 05/04/19 08:59 3.8 gm/dl (3.4-5.0) 05/04/19 08:59 170 U/L (73-393) 05/04/19 08:59 Pale yellow 05/04/19 09:35 Clear (CLEAR) 05/04/19 09:35 6.5 pH (5.0-7.0) 05/04/19 09:35 Ur Specific [place] <=1.005 SP.GR. (1.005-1.010) 05/04/19 09:35 Negative mg/dL (NEGATIVE) 05/04/19 09:35 Negative mg/dL (NEGATIVE) 05/04/19 09:35 Negative mg/dL (NEGATIVE) 05/04/19 09:35 5 /ul (NEGATIVE) H 05/04/19 09:35 Negative (NEGATIVE) 05/04/19 09:35 Negative mg/dl (NEGATIVE) 05/04/19 09:35 Normal EU/dl (NORMAL) 05/04/19 09:35 Ur Leukocyte Esterase Negative /ul (NEGATIVE) 05/04/19 09:35 None seen /hpf (0-5) 05/04/19 09:35 None seen /hpf (0-5) 05/04/19 09:35 Ur Epithelial Cells Trace /hpf (0-5) 05/04/19 09:35 None seen (NONE) 05/04/19 09:35 No culture indicated 05/04/19 09:35 Assessment/Plan - Narrative Narrative: Patient was admitted to observation in the [facility] floor with a diagnosis of pulmonary embolism. She will be treated with therapeutic levels of Lovenox for anticoagulation and was placed on telemetry for monitoring of vital signs and continuous pulse oximetry to watch her oxygen saturation. We will continue to monitor her closely. - Assessment/Plan (1) Pulmonary embolism Problem: Acute (2) Thoracic back pain Problem: Acute
[2019-05-04] MEDS: MORPHINE SULFATE 2 MG/ML DISP.SYRIN IV PRN ×2 (14:09→22:42)
[2019-05-04] MEDS ORDERED: MELATONIN 3,000 MCG TABLET PO PRN (14:45)
[2019-05-05] MEDS ORDERED: ENOXAPARIN SODIUM 60 MG/0.6 ML SYRG SC SCH
[2019-05-05] MEDS ORDERED: LEVOTHYROXINE SODIUM 75 MCG TABLET PO SCH (07:00)
[2019-05-05] MEDS ORDERED: CALCIUM CARBONATE/VITAMIN D3 1 TAB TABLET PO SCH (09:00)
[2019-05-05] MEDS ORDERED: MULTIVITAMINS 1 CAP CAPSULE PO SCH (09:00)
[2019-05-05] MEDS ORDERED: CHOLECALCIFEROL 5,000 UNIT TABLET PO SCH (09:00)
[2019-05-05] MEDS ORDERED: OMEGA-3 FATTY ACIDS 1 CAP CAPSULE PO SCH (09:00)
[2019-05-05] MEDS ORDERED: CYANOCOBALAMIN 1,000 MCG TABLET PO SCH (09:00)
[2019-05-05] MEDS ORDERED: ASPIRIN 81 MG TAB.CHEW PO SCH (09:00)
--- NOTE | 2019-05-05 10:51 | DS ---
(1) Pulmonary embolism Problem: Acute Qualifiers: Pulmonary embolism type: other Chronicity: acute Acute cor pulmonale presence: without acute cor pulmonale Qualified Code(s): I26.99 - Other pulmonary embolism without acute cor pulmonale (2) Thoracic back pain Problem: Resolved Date of Discharge:: 05/05/19 Description of Stay: 73-year-old female admitted for an acute pulmonary embolism detected on chest CT was evaluated at bedside was found to be afebrile and in no acute distress. Patient was treated with therapeutic levels of Lovenox which she tolerated without any issues, she also maintained adequate oxygen saturation on room air and stable vitals. This morning patient reports resolution of her chest/back pain, the last administration of pain medication was last night shortly after bedtime since then she hasn't had any issues. Anticoagulation was discussed with the patient and she agreed to 12 weeks on Eliquis, therefore she will be discharged with a prescription for medication to be taken twice daily. She will also be scheduled for checkup in my office in the next few days. Procedures Performed: none Results and Findings: Lab Pending Results 05/04/19 08:56: D-Dimer 2.31 H 05/04/19 08:59: WBC 5.1, RBC 4.88, Hgb 15.1, Hct 46.8, MCV 95.9, MCH 30.9, MCHC 32.3, RDW 13.8, Plt Count 163, MPV 10.2, Immature Gran % (Auto) 0.20, Immature Gran # (Auto) 0.01, Neutrophils % 67.4, Lymphocytes % 22.5, Monocytes % 7.1, Eosinophils % 1.6, Basophils % 1.2 H, Nucleated RBC % 0.0, Neutrophils # 3.4, Lymphocytes # 1.15 L, Monocytes # 0.4, Eosinophils # 0.1, Absolute Basophils 0.1 05/04/19 08:59: Sodium 139, Plasma Sodium 139, Potassium 3.9, Chloride 102, Carbon Dioxide 28.6, Anion Gap 12.3, BUN 10, Creatinine 0.82, Est GFR (Non-Af Amer) 72, BUN/Creatinine Ratio 12.2, Random Glucose 89, Calcium 9.2, Calcium Adj for Albumin 9.0, Total Bilirubin 0.8, AST 45, ALT 24, Alkaline Phosphatase 82, Troponin I Less than 0.017, C-Reactive Prot, Quant Less than 0.2, Total Protein 7.7, Albumin 3.8, Lipase 170 05/04/19 09:35: Urine Color Pale yellow, Urine Appearance Clear, Urine pH 6.5, Ur Specific [place] <=1.005, Urine Protein Negative, Urine Glucose (UA) Negative , Urine Ketones Negative, Urine Blood 5 H, Urine Nitrate Negative, Urine Bilirubin Negative, Urine Urobilinogen Normal, Ur Leukocyte Esterase Negative, Urine RBC None seen, Urine WBC None seen, Ur Epithelial Cells Trace, Urine Bacteria None seen, Urine Culture Comments No culture indicated Discharge Location: Home Disposition: Home self-care Condition: Good Face to Face Encounter completed per [facility] Guidelines: No Discharge Activity: Activity as tolerated Discharge Diet: General/regular food Referrals: Lea Woods MD [Primary Care Provider] - Additional Patient Instructions (free text): -Please make TCM appointment unless senior care discharge, or if following up with outside provider. Thank you! Ludivina @ [employer] [id number] or Miryam at [address]. Prescriptions (Any new or edited meds): Apixaban [Eliquis] 10 mg PO BID 7 Days #14 tab Apixaban [Eliquis] 5 mg PO BID 83 Days #166 tab Complete Home Medications List: Complete Home Medication List: Multivitamins [Multivitamin Rigoberto] 1 cap PO DAILY 01/15/15 Cyanocobalamin (Vitamin B-12) [Vitamin B-12] 5,000 mcg SL DAILY 07/07/17 Aspirin 81 mg PO DAILY 11/30/17 melatonin 5 mg capsule 5 mg PO HS PRN 04/19/18 cholecalciferol (vitamin D3) 5,000 unit capsule 5,000 unit PO DAILY 05/09/18 calcium citrate-vitamin D3 200 mg calcium-250 unit tablet 1 tab PO DAILY 12/19/18 levothyroxine 75 mcg tablet 75 mcg PO DAILY #90 tab 02/07/19 [place]-3/Dha/Epa/Fish Oil [Fish Oil 1,000 mg Softgel] 1 ea PO DAILY 05/04/19 Apixaban [Eliquis] 5 mg PO BID 83 Days #166 tab 05/05/19 Apixaban [Eliquis] 10 mg PO BID 7 Days #14 tab 05/05/19
[2019-05-05 11:46] VITALS: BP 149/90
== END 2019-05-05 12:00 | disposition home or self-care (01) ==
LOC: ER 08:03 → MS 08:03
PROVIDERS: ADMIT Family Medicine; ATTEND Family Medicine
CPT/HCPCS: 36415; 71020; 71046; 71275; 72072; 80053; 81001; 83690; 84484; 85025; 85379; 86140; 93005; 94762; 96372; 96374; 96375; 99285; G0378; Q9967